=== PATIENT | male | born 1940 | race Caucasian/White ===

== ENCOUNTER 2021-01-30 11:09 | Outpatient (CLI) | payer OTHER ==
[2021-01-30 17:36] LABS: SARS-CoV-2 PCR by NAA Not Detected (NotDetected)
== END 2021-01-30 11:10 | disposition home or self-care (01) ==
LOC: LABBT 11:09
PROVIDERS: ATTEND Internal Medicine
DX: Z01.812 Encounter for preprocedural laboratory examination (principal); K59.09 Other constipation; R63.4 Abnormal weight loss; N28.89 Other specified disorders of kidney and ureter; Z20.822 Contact with and (suspected) exposure to COVID-19
CPT/HCPCS: U0003; U0005

== ENCOUNTER 2021-02-04 09:37 | Day surgery (SDC) | payer OTHER ==
[2021-02-02 14:08] VITALS: BMI 23.6
[2021-02-04] MEDS ORDERED: Lidocaine 1% PF 5 ML VIAL ONE (13:07)
[2021-02-04] MEDS ORDERED: PROPOFOL 200 MG/20 ML VIAL ONE (13:07)
[2021-02-04] MEDS ORDERED: ePHEDrine 50 MG/ML VIAL ONE (13:07)
== END 2021-02-04 14:45 | disposition home or self-care (01) ==
LOC: SDC 09:37
PROVIDERS: ATTEND Internal Medicine
PROC: 0DB58ZX Excision of Esophagus, Via Natural or Artificial Opening Endoscopic, Diagnostic (ICD-10-PCS; principal; 2021-02-04)
PROC: 0DBL8ZX Excision of Transverse Colon, Via Natural or Artificial Opening Endoscopic, Diagnostic (ICD-10-PCS; principal; 2021-02-04)
DX: K22.70 Barrett's esophagus without dysplasia (principal); R63.4 Abnormal weight loss; K59.09 Other constipation; K22.89 Other specified disease of esophagus; K57.30 Diverticulosis of large intestine without perforation or abscess without bleeding; D12.3 Benign neoplasm of transverse colon; C64.1 Malignant neoplasm of right kidney, except renal pelvis; I10 Essential (primary) hypertension; E78.5 Hyperlipidemia, unspecified; I48.91 Unspecified atrial fibrillation; J44.9 Chronic obstructive pulmonary disease, unspecified; G47.30 Sleep apnea, unspecified; K21.9 Gastro-esophageal reflux disease without esophagitis; E78.00 Pure hypercholesterolemia, unspecified; Z68.23 Body mass index [BMI] 23.0-23.9, adult; Z87.891 Personal history of nicotine dependence; Z79.51 Long term (current) use of inhaled steroids; Z79.01 Long term (current) use of anticoagulants; Z79.899 Other long term (current) drug therapy; Z95.0 Presence of cardiac pacemaker; Z98.890 Other specified postprocedural states; Z90.5 Acquired absence of kidney; Z87.19 Personal history of other diseases of the digestive system
CPT/HCPCS: 88305